=== PATIENT | male | born 1985 | race Caucasian/White ===

== ENCOUNTER 2017-09-21 05:10 | Emergency (ER) | payer BC ==
[2017-09-21] MEDS: IBUPROFEN 600 MG TABLET. PO (05:42)
== END 2017-09-21 06:23 | disposition home or self-care (01) ==
LOC: ER 05:10
DX: M25.541 Pain in joints of right hand (principal); F10.10 Alcohol abuse, uncomplicated; Z88.1 Allergy status to other antibiotic agents
CPT/HCPCS: 73130; 99284